=== PATIENT | male | born 1980 | race Caucasian/White ===

== ENCOUNTER 2022-01-31 14:55 | Emergency (ER) | payer MEDICAID, OTHER ==
[~2022-01-31] VITALS: Ht 188 cm; Wt 113.6 kg
[~2022-01-31 14:55] MED LIST: NO HOME MEDS
[2022-01-31 15:13] VITALS: BP 141/88
[2022-01-31] MEDS ORDERED: ibuprofen tablet 400 MG TABLET PO ONE (16:40)
[2022-01-31] MEDS ORDERED: ONDA4TAB12 PO (16:43)
[2022-01-31] MEDS ORDERED: AMOX500C2 PO (16:43)
[2022-01-31] MEDS ORDERED: IBUP-1986 PO (16:43)
[2022-01-31] MEDS ORDERED: ondansetron 4mg rapidly disintigrating tab PO ONE (16:45)
--- NOTE | 2022-01-31 18:05 | NUR ---
po meds x2 given
== END 2022-01-31 18:06 | disposition home or self-care (01) ==
LOC: ER 14:55
DX: B34.9 Viral infection, unspecified (principal); Z20.822 Contact with and (suspected) exposure to COVID-19; K08.89 Other specified disorders of teeth and supporting structures; G89.29 Other chronic pain; M54.9 Dorsalgia, unspecified
CPT/HCPCS: 87502; 87503; 87635; 99283; C9803

== ENCOUNTER 2023-11-24 01:09 | Emergency (ER) | payer OTHER ==
[~2023-11-24] VITALS: Ht 188 cm; Wt 100.9 kg
[~2023-11-24 01:09] MED LIST changes: +IBUP-1986 PO; +ONDA-243 PO
[2023-11-24 01:15] VITALS: BP 113/79; PULSE 88; RESP 18; TEMP 97.7; O2SAT 98
== END 2023-11-24 04:05 | disposition left against medical advice (07) ==
LOC: ER 01:10
DX: G43.909 Migraine, unspecified, not intractable, without status migrainosus (principal); Z53.21 Procedure and treatment not carried out due to patient leaving prior to being seen by health care provider

== ENCOUNTER 2024-05-24 17:09 | Emergency (ER) | payer MEDICAID, OTHER ==
[~2024-05-24] VITALS: Ht 185.4 cm; Wt 105.8 kg
[2024-05-24 17:10] VITALS: BP 132/81; PULSE 76; RESP 16; O2SAT 98
[2024-05-24] MEDS ORDERED: diphenhydrAMINE 50 mg/ml inj IV ONE (18:30)
[2024-05-24] MEDS ORDERED: metoclopramide 5 mg/ml inj IV ONE (18:30)
[2024-05-24] MEDS ORDERED: ketorolac trometh 15mg/ml vial 15 MG/ML ML IV ONE (18:30)
[2024-05-24] MEDS: SUMAtriptan 25 MG tablet PO ONE (18:41)
[2024-05-24] MEDS ORDERED: AMOX-580 PO (19:17)
[2024-05-24] MEDS ORDERED: SUMA100T16 PO (19:17)
[2024-05-24 19:24] VITALS: TEMP 98.2
== END 2024-05-24 19:24 | disposition home or self-care (01) ==
LOC: ER 17:09
DX: G43.909 Migraine, unspecified, not intractable, without status migrainosus (principal); K04.7 Periapical abscess without sinus
CPT/HCPCS: 99283

== ENCOUNTER 2024-08-25 12:17 | Emergency (ER) | payer MEDICAID ==
[~2024-08-25] VITALS: Ht 185.4 cm; Wt 96.7 kg
[~2024-08-25 12:17] MED LIST changes: +SUMA100T16 PO
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
[2024-08-25] MEDS: ketorolac trometh 30MG/ML vial 30 MG/ML VIAL IM ONE (14:10)
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
[2024-08-25 14:23] VITALS: BP 117/63; PULSE 60; RESP 16; TEMP 98.1; O2SAT 98
== END 2024-08-25 14:21 | disposition home or self-care (01) ==
LOC: ER 12:17
DX: S39.012A Strain of muscle, fascia and tendon of lower back, initial encounter (principal); F17.200 Nicotine dependence, unspecified, uncomplicated; Z79.899 Other long term (current) drug therapy; V89.2XXA Person injured in unspecified motor-vehicle accident, traffic, initial encounter; Y93.89 Activity, other specified; Y92.89 Other specified places as the place of occurrence of the external cause; Y99.8 Other external cause status
CPT/HCPCS: 72100; 99283